=== PATIENT | male | born 1940 | race Caucasian/White ===

== ENCOUNTER 2017-05-22 00:11 | Emergency (ER) | payer OTHER ==
[~2017-05-22] VITALS: Ht 182.9 cm; Wt 81.6 kg
[2017-05-22 00:11] VITALS: BP_SYST 148
[2017-05-22] MEDS ORDERED: GASTROGRAFIN 120 ML ONE (00:48)
[2017-05-22 01:03] VITALS: BP_SYST 148
== END 2017-05-22 01:03 | disposition home or self-care (01) ==
LOC: SED 00:11
DX: Z43.1 Encounter for attention to gastrostomy (principal); I48.91 Unspecified atrial fibrillation; K21.9 Gastro-esophageal reflux disease without esophagitis; Z86.73 Personal history of transient ischemic attack (TIA), and cerebral infarction without residual deficits; Z95.2 Presence of prosthetic heart valve
CPT/HCPCS: 43760; 74240; 99284; Q9963